=== PATIENT | female | born 1955 | race Caucasian/White ===

== ENCOUNTER 2017-12-05 16:13 | Emergency (ER) | payer MEDICAID ==
[2017-12-05] MEDS ORDERED: ASPIRIN 32325 MG/TAB PO (16:21)
[2017-12-05] MEDS ORDERED: ZANTAC 150MG T150 MG PO (16:22)
[2017-12-05] MEDS ORDERED: DESYREL 50MG50 MG PO (16:22)
[2017-12-05] MEDS ORDERED: TOPROL XL100 MG PO (16:22)
[2017-12-05] MEDS ORDERED: PRINIVIL20 MG PO (16:23)
[2017-12-05 16:42] LABS: EOS # 0.2 (0.0-0.7); EOS % 4.3 % (0-4.0); GRAN # 1.2 (1.4-6.5); GRAN % 27.2 % (42.2-75.2); HEMOGLOBIN 14.7 g/dl (12.5-16.0); LYMPH # 2.4 (1.2-3.4); LYMPH % 56.8 % (20.0-51.0); MEAN CELL VOLUME 98 fl (80.0-100.0); MEAN CORPUSCULAR HEMOGLOBIN 33 pg (27.0-31.0); MEAN CORPUSCULAR HGB CONC 34 g/dl (33.0-37.0); MEAN PLATELET VOLUME 9.9 fl (7.4-10.4); MONO # 0.4 (0.1-0.6); MONO % 10.5 % (1.7-9.3); PLATELET COUNT 117 K/mm3 (130-400); RED BLOOD COUNT 4.41 M/mm3 (4.10-5.30); REDCELL DISTRIBUTION WIDTH-CV 12.9 % (11.5-14.5)
[2017-12-05 16:51] LABS: ALANINE AMINOTRANSFERASE 70 U/L (9-52); ALBUMIN 4.2 gm/dL (3.5-5.0); ALKALINE PHOSPHATASE 68 U/L (50-136); ANION GAP 15 mmol/L (7-16); AST,SGOT 155 U/L (15-37); BILIRUBIN,TOTAL 0.6 mg/dL (0.0-1.0); BLOOD UREA NITROGEN 13 mg/dL (7-17); CALCIUM 8.7 mg/dL (8.4-10.2); CARBON DIOXIDE 26 mmol/L (22-30); CHLORIDE 107 mmol/L (98-107); CREATININE, serum 0.65 mg/dL (0.52-1.25); GLUCOSE 109 mg/dL (74-106); LIPASE 254 U/L (23-300); PHOSPHOROUS 4.3 mg/dL (2.5-4.5); POTASSIUM 3.9 mmol/L (3.4-5.0); SODIUM 147 mmol/L (137-145); TOTAL PROTEIN 7.4 gm/dL (6.4-8.2)
[2017-12-05 16:55] LABS: ACETAMINOPHEN < 10 ug/mL (10-30); SALICYLATE < 1.0 mg/dL
[2017-12-05 16:58] LABS: ALCOHOL(ethanol),MEDICAL 496 mg/dL
[2017-12-05 17:04] LABS: TRICYCLIC ANTIDEPRESS URINE NEGATIVE
[2017-12-05 21:40] VITALS: BP 112/65; PULSE 72; TEMP 97.2
== END 2017-12-05 21:45 | disposition home or self-care (01) ==
LOC: COL.ER 16:13
PROVIDERS: Emergency Medicine
DX: F10.129 Alcohol abuse with intoxication, unspecified (principal); Y90.8 Blood alcohol level of 240 mg/100 ml or more; Z79.82 Long term (current) use of aspirin
CPT/HCPCS: C9113; J2405; J7030